=== PATIENT | female | born 1970 | race American Indian/Alaskan Native ===

== ENCOUNTER 2016-07-10 20:17 | Inpatient (IN) | payer MEDICAID ==
[2016-07-10 21:05] LABS: Basophils % (Auto) 0.9 % (0.0-1.8); Eosinophils % (Auto) 4.7 % (0.0-4.3); Hemoglobin 13.9 gm/dl (10.1-14.3); Mean Corpuscular HGB Conc 33 % (30-34); Mean Corpuscular Hemoglobin 31 pg (28-32); Mean Corpuscular Volume 93 fl (79-97); Platelet Count 198 K/mm3 (140-440); Red Blood Count 4.53 M/mm3 (3.65-5.03); Red Cell Distribution Width 13.6 % (13.2-15.2)
[2016-07-10 21:20] LABS: Anion Gap 17 mmol/L; BUN/Creatinine Ratio 13.33; Blood Urea Nitrogen 12 mg/dL (7-17); Calcium 9.3 mg/dL (8.4-10.2); Carbon Dioxide 29 mmol/L (22-30); Chloride 100.1 mmol/L (98-107); Glucose 148 mg/dL (65-100); Potassium 3.5 mmol/L (3.6-5.0); Sodium 143 mmol/L (137-145)
[2016-07-10] MEDS ORDERED: K-DUR PO ONE ×2 (22:14→23:45)
--- NOTE | 2016-07-10 22:35 | Emergency Department Report ---
ED Chest Pain HPI - General Chief Complaint: Chest Pain Stated Complaint: CHEST PAIN Time Seen by Provider: 07/10/16 21:25 Source: patient Mode of arrival: Stretcher Limitations: No Limitations - History of Present Illness Initial Comments: 46 year old female with a past medical history of morbid obesity and hypertension presents to the hospital complains of chest pain and shortness of breath 1 day. Patient states since this morning she has had a constant chest pressure fluctuates in intensity. Pain is at its worse 8/10 intensity. Symptoms worse with activity and exertion. Associated dyspnea on exertion also reported which is new. Patient states she's been compliant with her medication but presents with elevated blood pressure. Patient denies history of previous stress testing. 2 months ago it was identified that she has frequent PVCs and she has been receiving outpatient workup and evaluation. Patient recently just turned in a Holter monitor after use and is in the process of scheduling outpatient stress test. She complains of cough productive of white sputum without fever. No reports of calf tenderness, edema, weakness injury, recent travel, PE/DVT history, or control use. Card: [facility] PMD: Dorian Murphy - Related Data Home Medications Medication Instructions Recorded Confirmed Last Taken Esomeprazole Magnesium [NexIUM] 40 mg PO QDAY 02/28/15 03/07/15 1 Month Ago Hydrochlorothiazide [HCTZ] 25 mg PO QDAY 02/28/15 03/07/15 03/06/15 11:00 Iron 2 tab PO QDAY 02/28/15 03/07/15 2 Days Ago Levothyroxine [Synthroid] 250 mcg PO QAM 02/28/15 03/07/15 03/06/15 08:00 Oxycodone HCl/Acetaminophen 1 each PO Q6HR PRN 02/28/15 03/07/15 02/28/15 [Percocet 10/325 mg] PARoxetine [Paxil] 20 mg PO DAILY 02/28/15 03/07/15 1 Month Ago QUEtiapine [SEROquel] 200 mg PO DAILY 02/28/15 03/07/15 1 Month Ago amLODIPine [Norvasc] 10 mg PO DAILY 02/28/15 03/07/15 Unknown risperiDONE [RisperiDONE] 3 mg PO QDAY 02/28/15 03/07/15 1 Month Ago traZODone [Desyrel] 100 mg PO BID 02/28/15 03/07/15 2 Weeks Ago amLODIPine [Norvasc] 1 tab PO DAILY 03/07/15 03/07/15 03/06/15 11:00 Previous Rx's Medication Instructions Recorded Last Taken Type HYDROmorphone [Dilaudid] 2 mg PO Q4H PRN #40 tablet 03/10/15 Unknown Rx Ibuprofen [Motrin 800 MG tab] 800 mg PO Q8H PRN #40 tablet 03/10/15 Unknown Rx Nicotine [Habitrol] 21 mg TD QDAY #30 patch 03/10/15 Unknown Rx QUEtiapine [SEROquel] 200 mg PO QHS #30 tablet 03/10/15 Unknown Rx Ondansetron [Zofran ODT TAB] 8 mg PO Q8HR #20 tab.rapdis 11/29/15 Unknown Rx Oxycodone HCl/Acetaminophen 1 each PO Q6HR PRN #20 tablet 11/29/15 Unknown Rx [Percocet 10/325 mg] metroNIDAZOLE [Flagyl] 500 mg PO Q12HR 10 Days 11/29/15 Unknown Rx Allergies Allergy/AdvReac Type Severity Reaction Status Date / Time Sulfa (Sulfonamide Allergy tongue Verified 02/28/15 13:57 Antibiotics) swells, itching JOHN score - John Score Age > 65: (0) No Aspirin use within the Past 7 Days: (0) No 3 or more CAD Risk Factors: (0) No 2 or more Angina events in past 24 hrs: (0) No Known CAD with more than 50% Stenosis: (0) No Elevated Cardiac Markers: (0) No ST Deviation Greater than 0.5mm: (0) No JOHN Score: 0 ED Review of Systems ROS: Stated complaint: CHEST PAIN Other details as noted in HPI Comment: All other systems reviewed and negative Other: Constitutional: No fevers chills Eyes: No eye pain visual changes ENT: No ear pain or throat pain Neck: Denies pain Respiratory: as per hpi Cardiovascular: Denies palpitations, syncope GI: Denies abdominal pain, nausea, vomiting, diarrhea : Denies dysuria, urinary frequency, or urgency Musculoskeletal: Denies back pain, joint swelling Skin: Denies rash, lesions, erythema Neurologic: Denies headache, numbness, weakness Psychiatric: Denies suicidal ideation, hallucinations ED Past Medical Hx - Past Medical History Hx Hypertension: Yes (x 10-15 yrs) Hx Congestive Heart Failure: No Hx Diabetes: No Hx GERD: Yes Hx Arthritis: Yes (severe knees, hips) Hx Asthma: No Hx COPD: No - Surgical History Hx Cholecystectomy: Yes Additional Surgical History: Hysterectomy, thyroidectomy - Social History Smoking Status: Never Smoker Substance Use Type: None - Medications Home Medications: Home Medications Medication Instructions Recorded Confirmed Last Taken Type Esomeprazole Magnesium [NexIUM] 40 mg PO QDAY 02/28/15 03/07/15 1 Month Ago History Hydrochlorothiazide [HCTZ] 25 mg PO QDAY 02/28/15 03/07/15 03/06/15 11:00 History Iron 2 tab PO QDAY 02/28/15 03/07/15 2 Days Ago History Levothyroxine [Synthroid] 250 mcg PO QAM 02/28/15 03/07/15 03/06/15 08:00 History Oxycodone HCl/Acetaminophen 1 each PO Q6HR PRN 02/28/15 03/07/15 02/28/15 History [Percocet 10/325 mg] PARoxetine [Paxil] 20 mg PO DAILY 02/28/15 03/07/15 1 Month Ago History QUEtiapine [SEROquel] 200 mg PO DAILY 02/28/15 03/07/15 1 Month Ago History amLODIPine [Norvasc] 10 mg PO DAILY 02/28/15 03/07/15 Unknown History risperiDONE [RisperiDONE] 3 mg PO QDAY 02/28/15 03/07/15 1 Month Ago History traZODone [Desyrel] 100 mg PO BID 02/28/15 03/07/15 2 Weeks Ago History amLODIPine [Norvasc] 1 tab PO DAILY 03/07/15 03/07/15 03/06/15 11:00 History HYDROmorphone [Dilaudid] 2 mg PO Q4H PRN #40 tablet 03/10/15 Unknown Rx Ibuprofen [Motrin 800 MG tab] 800 mg PO Q8H PRN #40 tablet 03/10/15 Unknown Rx Nicotine [Habitrol] 21 mg TD QDAY #30 patch 03/10/15 Unknown Rx QUEtiapine [SEROquel] 200 mg PO QHS #30 tablet 03/10/15 Unknown Rx Ondansetron [Zofran ODT TAB] 8 mg PO Q8HR #20 tab.rapdis 11/29/15 Unknown Rx Oxycodone HCl/Acetaminophen 1 each PO Q6HR PRN #20 tablet 11/29/15 Unknown Rx [Percocet 10/325 mg] metroNIDAZOLE [Flagyl] 500 mg PO Q12HR 10 Days 11/29/15 Unknown Rx ED Physical Exam - General Limitations: No Limitations - Other Other exam information: General: No limitations, patient is alert in no acute distress Head exam: Atraumatic, normocephalic Eyes exam: Normal appearance, pupils equal reactive to light, extraocular movements intact ENT: Moist mucous membrane, normal oropharynx Neck exam: Normal inspection, full range of motion, no meningismus nontender Respiratory exam: Clear to auscultation bilateral, no wheezes, rales, crackles, chest wall nontender Cardiovascular: Normal rate and rhythm, normal heart sounds Abdomen: Soft, nondistended, and nontender, with normal bowel sounds, no rebound, or guarding Extremity: Full range of motion normal inspection no deformity, no calf tenderness or edema Back: Normal Inspection, full range of motion, no tenderness Neurologic: Alert, oriented x3, cranial nerves intact, no motor or sensory deficit Psychiatric: normal affect, normal mood Skin: Warm, dry, intact ED Course Vital Signs 07/10/16 20:36 Temperature 97.7 F Pulse Rate 67 Blood Pressure 174/106 O2 Sat by Pulse 100 Oximetry - Reevaluation(s) Reevaluation #1: 07/10/16 22:39 pt stable ED Medical Decision Making - Lab Data Result diagrams: 07/10/16 20:54 07/10/16 20:54 Lab Results 07/10/16 07/10/16 07/10/16 Range/Units 20:54 20:54 20:54 WBC 7.0 (4.5-11.0) K/mm3 RBC 4.53 (3.65-5.03) M/mm3 Hgb 13.9 (10.1-14.3) gm/dl Hct 42.0 (30.3-42.9) % MCV 93 (79-97) fl MCH 31 (28-32) pg MCHC 33 (30-34) % RDW 13.6 (13.2-15.2) % Plt Count 198 (140-440) K/mm3 Lymph % (Auto) 22.3 (13.4-35.0) % [place] % (Auto) 8.3 H (0.0-7.3) % Eos % (Auto) 4.7 H (0.0-4.3) % Baso % (Auto) 0.9 (0.0-1.8) % Lymph # 1.6 (1.2-5.4) K/mm3 [place] # 0.6 (0.0-0.8) K/mm3 Eos # 0.3 (0.0-0.4) K/mm3 Baso # 0.1 (0.0-0.1) K/mm3 Seg Neutrophils % 63.8 (40.0-70.0) % Seg Neutrophils # 4.5 (1.8-7.7) K/mm3 D-Dimer (0-234) ng/mlDDU Sodium 143 (137-145) mmol/L Potassium 3.5 L (3.6-5.0) mmol/L Chloride 100.1 (98-107) mmol/L Carbon Dioxide 29 (22-30) mmol/L Anion Gap 17 mmol/L BUN 12 (7-17) mg/dL Creatinine 0.9 (0.7-1.2) mg/dL Estimated GFR > 60 ml/min BUN/Creatinine Ratio 13.33 % Glucose 148 H (65-100) mg/dL Calcium 9.3 (8.4-10.2) mg/dL Magnesium 1.8 (1.7-2.3) mg/dL Troponin T < 0.010 (0.00-0.029) ng/mL 07/10/16 Range/Units 21:51 WBC (4.5-11.0) K/mm3 RBC (3.65-5.03) M/mm3 Hgb (10.1-14.3) gm/dl Hct (30.3-42.9) % MCV (79-97) fl MCH (28-32) pg MCHC (30-34) % RDW (13.2-15.2) % Plt Count (140-440) K/mm3 Lymph % (Auto) (13.4-35.0) % [place] % (Auto) (0.0-7.3) % Eos % (Auto) (0.0-4.3) % Baso % (Auto) (0.0-1.8) % Lymph # (1.2-5.4) K/mm3 [place] # (0.0-0.8) K/mm3 Eos # (0.0-0.4) K/mm3 Baso # (0.0-0.1) K/mm3 Seg Neutrophils % (40.0-70.0) % Seg Neutrophils # (1.8-7.7) K/mm3 D-Dimer < 135.00 (0-234) ng/mlDDU Sodium (137-145) mmol/L Potassium (3.6-5.0) mmol/L Chloride (98-107) mmol/L Carbon Dioxide (22-30) mmol/L Anion Gap mmol/L BUN (7-17) mg/dL Creatinine (0.7-1.2) mg/dL Estimated GFR ml/min BUN/Creatinine Ratio % Glucose (65-100) mg/dL Calcium (8.4-10.2) mg/dL Magnesium (1.7-2.3) mg/dL Troponin T (0.00-0.029) ng/mL - EKG Data -: EKG Interpreted by Me (sinus frequent PVCs rate 88) - EKG Data When compared to previous EKG there are: previous EKG unavailable - Radiology Data Radiology results: image reviewed (chest x-ray: No acute findings) - Medical Decision Making Patient will be admitted to the hospital for a cardiac evaluation given chest pressure and exertional dyspnea. D-dimer negative without any preceding PE/DVT risk factors other than obesity. No signs of acute SC in the ED. Pt received po potassium for mild hypokalemia - Differential Diagnosis SC, stable angina, PE, obesity Critical Care Time: No Critical care attestation.: If time is entered above; I have spent that time in minutes in the direct care of this critically ill patient, excluding procedure time. ED Disposition Clinical Impression: Hypokalemia Obesity Qualifiers: Obesity type: unspecified obesity type Obesity severity: morbid Qualified Code( s): E66.01 - Morbid (severe) obesity due to excess calories Chest pain Qualifiers: Chest pain type: unspecified Qualified Code(s): R07.9 - Chest pain, unspecified Dyspnea Qualifiers: Dyspnea type: unspecified Qualified Code(s): R06.00 - Dyspnea, unspecified HTN (hypertension) Qualifiers: Hypertension type: essential hypertension Qualified Code(s): I10 - Essential ( primary) hypertension Disposition: OP ADMITTED IP TO THIS HOSP Is pt being admited?: Yes Does the pt Need Aspirin: Yes Condition: Stable Time of Disposition: 22:40 (Dr Lockhart/hosp)
[2016-07-10] MEDS ORDERED: ASPIRIN PO ONE (22:41)
--- NOTE | 2016-07-10 23:53 | History and Physical Report ---
History of Present Illness Date of examination: 07/10/16 Date of admission: 07/10/16 22:42 Chief complaint: chest pain History of present illness: 46 year old female with a past medical history of morbid obesity and hypertension presents to the hospital complains of chest pain and shortness of breath 1 day. Patient states since this morning she has had a constant chest pressure fluctuates in intensity. Pain is at its worse 8/10 intensity. Symptoms worse with activity and exertion. Associated dyspnea on exertion also reported which is new. Patient states she's been compliant with her medication but presents with elevated blood pressure. Patient denies history of previous stress testing. 2 months ago it was identified that she has frequent PVCs and she has been receiving outpatient workup and evaluation. Patient recently just turned in a Holter monitor after use and is in the process of scheduling outpatient stress test. She complains of cough productive of white sputum without fever. No reports of calf tenderness, edema, weakness injury, recent travel, PE/DVT history, or control use. In the ER her troponine negative, she is getting admitted for further assessment. Past History Past Medical History: asthma, hypertension, thyroid disease, GERD, cancer (h/o thyroid cancer s/p two resections and radioactive iodine therapy in September 2014), other (Morbid Obesity, Schizophrenia ); Card: [facility] PMD: Dorian Murphy Past Surgical History: cholecystectomy, tonsillectomy, other (two thyroid surgeries (2011, 2013) ) ADMINISTRATIVE SECRETARY History: fibroids Family/Genetic History: heart disease, cancer Social history: smoking (1 pack per day) Review of System: Constitutional: no fever, no chills, no weight loss Ears, eyes, nose, mouth and throat: no nasal congestion, no nasal discharge, no sinus pressure, no vision change, no red eye. Neck: No neck pain or rigidity. Cardiovascular: + chest pain, no orthopnea, no palpitations, no leg swelling Respiratory: No shortness of breath, no cough, no congestion, no wheezing Gastrointestinal: no abdominal pain, no nausea, no vomiting Genitourinary : no dysuria, no hematuria Musculoskeletal: no joint swelling or muscle ache Integumentary: no rash, no pruritis Neurological: no parathesias, no numbness, no tingling Endocrine: no cold or heat intolerance, no polyuria or polydipsia Hematologic/Lymphatic: no easy bruising, no easy bleeding, no gland swelling Allergic/Immunologic: no urticaria, no angioedema. Medications and Allergies Allergies Allergy/AdvReac Type Severity Reaction Status Date / Time aspirin Allergy Swelling Verified 07/10/16 23:23 Sulfa (Sulfonamide Allergy tongue Verified 02/28/15 13:57 Antibiotics) swells, itching Home Medications Medication Instructions Recorded Confirmed Last Taken Type Esomeprazole Magnesium [NexIUM] 40 mg PO QDAY 02/28/15 03/07/15 1 Month Ago History Iron 2 tab PO QDAY 02/28/15 03/07/15 2 Days Ago History amLODIPine [Norvasc] 10 mg PO DAILY 02/28/15 03/07/15 Unknown History HYDROmorphone [Dilaudid] 2 mg PO Q4H PRN #40 tablet 03/10/15 Unknown Rx Ibuprofen [Motrin 800 MG tab] 800 mg PO Q8H PRN #40 tablet 03/10/15 Unknown Rx QUEtiapine [SEROquel] 200 mg PO QHS #30 tablet 03/10/15 Unknown Rx Ondansetron [Zofran ODT TAB] 8 mg PO Q8HR #20 tab.rapdis 11/29/15 Unknown Rx Oxycodone HCl/Acetaminophen 1 each PO Q6HR PRN #20 tablet 11/29/15 Unknown Rx [Percocet 10/325 mg] metroNIDAZOLE [Flagyl TAB] 500 mg PO Q12HR 10 Days 11/29/15 Unknown Rx Hydrochlorothiazide [HCTZ] 25 mg PO QDAY #30 tablet 07/11/16 Unknown Rx Levothyroxine [Synthroid] 250 mcg PO QAM #30 tablet 07/11/16 Unknown Rx Nicotine [Habitrol] 21 mg TD QDAY #30 patch 07/11/16 Unknown Rx Oxycodone HCl/Acetaminophen 1 each PO Q6HR PRN #15 tablet 07/11/16 Unknown Rx [Percocet 10/325 mg] PARoxetine [Paxil] 20 mg PO DAILY #30 tablet 07/11/16 Unknown Rx Pantoprazole [Protonix TAB] 40 mg PO DAILY #30 tablet 07/11/16 Unknown Rx QUEtiapine [SEROquel] 200 mg PO DAILY #30 tablet 07/11/16 Unknown Rx amLODIPine [Norvasc] 1 tab PO DAILY #30 tablet 07/11/16 Unknown Rx risperiDONE [RisperiDONE] 3 mg PO QDAY #30 tablet 07/11/16 Unknown Rx traZODone [Desyrel] 100 mg PO BID #30 tablet 07/11/16 Unknown Rx Active Meds: Active Medications Enoxaparin Sodium (Lovenox) 40 mg SUB-Q QDAY ED Exam - Physical Exam Narrative exam: GENERAL: This is a morbidly obese female lying on bed appeared to be in no discomfort. HEENT: Normocephalic. Atraumatic. Extraocular motions are intact. No conjunctival congestion or icterus. Patient has moist mucous membranes. External auditory canal and nares patent bilaterally. NECK: Supple. Trachea midline. No JVD, thyromagaly or lymphadenopathy. CHEST/LUNGS: Clear to auscultated bilaterally. There is no respiratory distress noted, breathing nonlabored. No wheezes crackles or rhonchi. positive for chest wall tenderness. HEART/CARDIOVASCULAR: Regular in rate and rhythm. PMI at the apex. There is no gallop rub or murmur. ABDOMEN: Abdomen is soft, nontender. Patient has normal bowel sounds. There is no abdominal distention. No organomagaly or rigidity. SKIN: There is no rash, no erythrema. There is no diaphoresis. Warm and dry. NEUROLOGY: The patient is awake, alert, and oriented. The patient is cooperative. The patient has normal speech. No focal motor deficit. MUSCULOSKELETAL: No joint effusion or tenderness. Muscle strength equal bilaterally. No muscle wasting. EXTRIMITY: No edema, cyanosis or clubbing. PSYCH: No depression or anxiety noted. Cooperative. - Constitutional Vitals: Temp Pulse Resp BP Pulse Ox 97.7 F 67 174/106 100 07/10/16 20:36 07/10/16 20:36 07/10/16 20:36 07/10/16 20:36 Results - Labs CBC & Chem 7: 07/10/16 20:54 07/11/16 01:38 Labs: Laboratory Last Values WBC 7.0 K/mm3 (4.5-11.0) 07/10/16 20:54 RBC 4.53 M/mm3 (3.65-5.03) 07/10/16 20:54 Hgb 13.9 gm/dl (10.1-14.3) 07/10/16 20:54 Hct 42.0 % (30.3-42.9) 07/10/16 20:54 MCV 93 fl (79-97) 07/10/16 20:54 MCH 31 pg (28-32) 07/10/16 20:54 MCHC 33 % (30-34) 07/10/16 20:54 RDW 13.6 % (13.2-15.2) 07/10/16 20:54 Plt Count 198 K/mm3 (140-440) 07/10/16 20:54 Lymph % (Auto) 22.3 % (13.4-35.0) 07/10/16 20:54 [place] % (Auto) 8.3 % (0.0-7.3) H 07/10/16 20:54 Eos % (Auto) 4.7 % (0.0-4.3) H 07/10/16 20:54 Baso % (Auto) 0.9 % (0.0-1.8) 07/10/16 20:54 Lymph # 1.6 K/mm3 (1.2-5.4) 07/10/16 20:54 [place] # 0.6 K/mm3 (0.0-0.8) 07/10/16 20:54 Eos # 0.3 K/mm3 (0.0-0.4) 07/10/16 20:54 Baso # 0.1 K/mm3 (0.0-0.1) 07/10/16 20:54 Seg Neutrophils % 63.8 % (40.0-70.0) 07/10/16 20:54 Seg Neutrophils # 4.5 K/mm3 (1.8-7.7) 07/10/16 20:54 D-Dimer < 135.00 ng/mlDDU (0-234) 07/10/16 21:51 Sodium 143 mmol/L (137-145) 07/10/16 20:54 Potassium 3.5 mmol/L (3.6-5.0) L 07/10/16 20:54 Chloride 100.1 mmol/L (98-107) 07/10/16 20:54 Carbon Dioxide 29 mmol/L (22-30) 07/10/16 20:54 Anion Gap 17 mmol/L 07/10/16 20:54 BUN 12 mg/dL (7-17) 07/10/16 20:54 Creatinine 0.9 mg/dL (0.7-1.2) 07/10/16 20:54 Estimated GFR > 60 ml/min 07/10/16 20:54 BUN/Creatinine Ratio 13.33 % 07/10/16 20:54 Glucose 148 mg/dL (65-100) H 07/10/16 20:54 Calcium 9.3 mg/dL (8.4-10.2) 07/10/16 20:54 Magnesium 1.8 mg/dL (1.7-2.3) 07/10/16 20:54 Troponin T < 0.010 ng/mL (0.00-0.029) 07/10/16 23:20 - Imaging and Cardiology Chest x-ray: pending Assessment and Plan Assessment and plan: Acute chest pain rule out ACS Hypokalemia, mild Hypothyroidism History of schizophrenia Hypertension, uncontrolled Morbid obesity History of asthma not in any exacerbation Plan: Admit to medicine her chest pain could be musculoskeletal but need to r/o ACS monitor serial troponine and EKG resume home meds Stress test tomorrow am resume home meds place beta radha and statin No aspirin b/o allergic history replace electrolytes GI and DVT prophylaxis Dietary recommendation when medically stable Advance Directives: Yes VTE prophylaxis?: Chemical Plan of care discussed with patient/family: Yes
[2016-07-11] MEDS ORDERED: ROXICODONE PO PRN (00:03)
[2016-07-11] MEDS ORDERED: SODIUM CHLORIDE FLUSH SYRINGE 10 ML IV PRN (00:09)
[2016-07-11] MEDS ORDERED: PERCOCET 5/325 ONE (00:32)
[2016-07-11] MEDS ORDERED: ROXICODONE ONE (00:32)
[2016-07-11] MEDS ORDERED: PERCOCET 5/325 PO PRN (00:44)
[2016-07-11 02:45] LABS: Creatine Kinase MB 2.7 ng/mL (0.0-4.0)
[2016-07-11 02:46] LABS: Anion Gap 19 mmol/L; BUN/Creatinine Ratio 21.25; Blood Urea Nitrogen 17 mg/dL (7-17); Calcium 8.9 mg/dL (8.4-10.2); Carbon Dioxide 27 mmol/L (22-30); Chloride 101.7 mmol/L (98-107); Glucose 164 mg/dL (65-100); Potassium 3.5 mmol/L (3.6-5.0); Sodium 144 mmol/L (137-145)
[2016-07-11 02:49] LABS: Creatine Kinase 217 units/L (30-135)
[2016-07-11] MEDS ORDERED: SYNTHROID PO SCH (06:00)
[2016-07-11 07:06] LABS: Creatine Kinase MB 2.8 ng/mL (0.0-4.0)
[2016-07-11 07:07] LABS: Creatine Kinase 209 units/L (30-135)
--- NOTE | 2016-07-11 08:12 | XRay Report ---
CHEST TWO VIEWS: 07/10/16 CLINICAL: Shortness of breath and chest pain. COMPARISON: 03/05/15 FINDINGS: Normal heart and pulmonary vasculature. The lungs are normally expanded and clear. The bones and soft tissues are normal. IMPRESSION: Normal contrast.
[2016-07-11] MEDS ORDERED: LEXISCAN IV ONE ×2 (08:29→08:47)
--- NOTE | 2016-07-11 09:32 | Admit Criteria Form ---
Admission Criteria Documentation: CHEST PAIN Clinical Indications for Admission to Inpatient Care (Place 'X' for any and all applicable criteria): Admission is indicated for chest pain and ANY ONE of the following(1)(2)(3)(4)(5 ): [ ]I. Angina with acute coronary syndrome (Also use Myocardial Infarction or Angina guideline) [ ]II. Hemodynamic instability []III. Angina needing acute intervention as indicated by ALL of the following( 11)(12): [ ]a) Unstable angina is present as indicated by angina that is ANY ONE of the following: [ ]i) New onset [ ]ii) Nocturnal [ ]iii) Prolonged at rest [ ]iv) Progressive [ ]b) Angina warrants acute intervention as indicated by ANY ONE of the following: [ ]i) Recurrent angina (e.g, not responding as previously to treatment) [ ]ii) Angina at rest or with low-level activities despite initial medical therapy [ ]iii) New or presumably new ST-segment depression on ECG [ ]iv) Signs or symptoms of heart failure (eg, dyspnea, pulmonary edema) [ ]v) New or worsening mitral regurgitation [ ]vi) Hemodynamic instability [ ]vii) Dangerous arrhythmia (eg, sustained ventricular tachycardia) [ ]viii) History of percutaneous coronary intervention within 6 months [ ]ix) History of coronary artery bypass graft surgery [ ]x) JOHN risk score of 2 or greater[A] [ ]xi) History of Diabetes(14) [ ]xii) High-risk cardiac ischemia findings on noninvasive testing (e.g, echocardiogram, treadmill testing, nuclear scan) [ ]xiii) Chronic renal insufficiency (ie, estimated GFR less than 60 mL/min/1.732m) [ ]xiv) Left ventricular ejection fraction less than 40% [ ]IV. Evidence of OR (eg, cardiac biomarkers positive, ST-segment elevation on ECG) also use Myocardial Infarction Criteria Form. [ ]V. Pulmonary edema [ ]. Respiratory distress [ ]VII. Chest pain indicative of serious diagnosis other than coronary artery disease (eg, aortic dissection) [X ]VIII. Contraindications and/or Inappropriate clinical situations for Observational Care in patients with Chest Pain, when ANY ONE of the following is required: [X ]a) Patient with risk factor for pulmonary embolism, acute coronary syndrome and myocardial infarction (18) [ ]b) Patient with Pulmonary embolism require an average LOS of 4.3 days, therefore emergency department observation management is inappropriate 18,23 [ ]c) Painful condition/s in the elderly, have the highest rate of recidivism after emergency department observation management (10.8%) 20,21,22 [ ]d) Elevated cardiac biomarker requires intensive and exhaustive care (19) [X ]IX. General contraindications and/or Inappropriate clinical situations for Observational Care in patients with Chest Pain, when ANY ONE of the following is required: [X ]a) Prediction of prolongation of LOS based on ANY ONE of the following may be considered as a contraindication for observational care 2, 3, 4, 5, 6, 7, 8, 9, 10, 11 [ ]i) Age > 65 yrs. [X ]ii) Patient arriving by ambulance [ ]iii) Patient with high acuity [ ]iv) Patient requiring vital sign monitoring [ ]v) Patient on IV medication [ ]b) Systolic blood pressures 180mmHg 3,12 [ ]c) Patient with altered mental status including delirium and other alteration of consciousness, (3) [ ]d) Patient whose discharge disposition will be to a assisted home or rehabilitation home should not be managed in Emergency Department Observation Unit. CMS rule requires 3 days hospital stay before such placement. 3,13 [ ]e) Patient with failure to thrive due to broad array of etiologies 3,16,17 [ ]f) Inability to ambulate 3,14 Extended stay beyond goal length of stay may be needed for (1)(28): [ ]a) Specific condition diagnosed after evaluation (eg, pulmonary embolism, aortic dissection) [ ]b) Unstable angina [ ]c) Continued suspicion of acute coronary syndrome with inability to complete needed cardiac evaluation (eg, patient clinically unable to undergo stress testing) [ ]d) Myocardial infarction (Contents from ANGINA and CHEST PAIN clinical indications for admission to inpatient care have been integrated in this form) The original [employer] content created by [employer] has been revised. The portions of the content which have been revised are identified through the use of italic text or in bold, and [facility] [employer] has neither reviewed nor approved the modified material. All other unmodified content is copyright [employer]. Please see references footnoted in the original [facility] edition 2016 Admission Criteria Met: Yes
[2016-07-11] MEDS ORDERED: RisperDAL PO SCH (10:00)
[2016-07-11] MEDS ORDERED: NORVASC PO SCH (10:00)
[2016-07-11] MEDS ORDERED: DESYREL PO SCH (10:00)
[2016-07-11] MEDS ORDERED: PROTONIX PO SCH (10:00)
[2016-07-11] MEDS ORDERED: HCTZ PO SCH (10:00)
[2016-07-11] MEDS ORDERED: COREG PO SCH (10:00)
[2016-07-11] MEDS ORDERED: HABITROL TD SCH (10:00)
[2016-07-11] MEDS ORDERED: PAXIL PO SCH (10:00)
[2016-07-11] MEDS ORDERED: LOVENOX SUB-Q SCH (10:00)
[2016-07-11] MEDS ORDERED: ECOTRIN PO SCH (10:00)
[2016-07-11 13:35] VITALS: BP 136/80
--- NOTE | 2016-07-11 13:57 | Treadmill Report ---
INDICATION: Chest pain. FINDINGS: There is no scintigraphic evidence of myocardial ischemia. The left ventricle is normal in size and systolic function. The left ventricular ejection fraction is measured at 62%. A normal wall motion with wall thickening is noted on gated imaging. CONCLUSION: Normal perfusion scan. JOB# [id number] GIANNI/HIGINIO
--- NOTE | 2016-07-11 14:41 | Progress Note ---
Assessment and Plan Assessment and plan: Acute chest pain rule out ACS. Stress thallium to rule out coronary artery disease. Hypokalemia, mild. Replete potassium. Hypothyroidism. Follow-up TSH. History of schizophrenia. Continue medications. Hypertension, uncontrolled. Continue antihypertensive medications. Morbid obesity History of asthma not in any exacerbation History Interval history: 46 year old female with a past medical history of morbid obesity and hypertension presents to the hospital complains of chest pain and shortness of breath 1 day. Patient still complains of pain currently. Patient states her shortness of breath is improved. Hospitalist Physical - Constitutional Vitals: Temp Pulse Resp BP Pulse Ox 97.9 F 76 20 136/80 99 07/11/16 11:10 07/11/16 11:10 07/11/16 11:10 07/11/16 11:10 07/11/16 11:10 General appearance: Present: no acute distress, well-nourished - EENT Eyes: Present: PERRL, EOM intact ENT: hearing intact, clear oral mucosa, dentition normal - Neck Neck: Present: supple, normal ROM - Respiratory Respiratory effort: normal Respiratory: bilateral: diminished - Cardiovascular Rhythm: regular Heart Sounds: Present: S1 & S2. Absent: gallop, rub - Extremities Extremities: no ischemia, No edema, Full ROM - Abdominal General gastrointestinal: soft, non-tender, non-distended, normal bowel sounds - Integumentary Integumentary: Present: clear, warm, dry - Neurologic Neurologic: CNII-XII intact, moves all extremities Results - Labs CBC & Chem 7: 07/10/16 20:54 07/11/16 01:38 Labs: Laboratory Last Values WBC 7.0 K/mm3 (4.5-11.0) 07/10/16 20:54 RBC 4.53 M/mm3 (3.65-5.03) 07/10/16 20:54 Hgb 13.9 gm/dl (10.1-14.3) 07/10/16 20:54 Hct 42.0 % (30.3-42.9) 07/10/16 20:54 MCV 93 fl (79-97) 07/10/16 20:54 MCH 31 pg (28-32) 07/10/16 20:54 MCHC 33 % (30-34) 07/10/16 20:54 RDW 13.6 % (13.2-15.2) 07/10/16 20:54 Plt Count 198 K/mm3 (140-440) 07/10/16 20:54 Lymph % (Auto) 22.3 % (13.4-35.0) 07/10/16 20:54 [place] % (Auto) 8.3 % (0.0-7.3) H 07/10/16 20:54 Eos % (Auto) 4.7 % (0.0-4.3) H 07/10/16 20:54 Baso % (Auto) 0.9 % (0.0-1.8) 07/10/16 20:54 Lymph # 1.6 K/mm3 (1.2-5.4) 07/10/16 20:54 [place] # 0.6 K/mm3 (0.0-0.8) 07/10/16 20:54 Eos # 0.3 K/mm3 (0.0-0.4) 07/10/16 20:54 Baso # 0.1 K/mm3 (0.0-0.1) 07/10/16 20:54 Seg Neutrophils % 63.8 % (40.0-70.0) 07/10/16 20:54 Seg Neutrophils # 4.5 K/mm3 (1.8-7.7) 07/10/16 20:54 D-Dimer < 135.00 ng/mlDDU (0-234) 07/10/16 21:51 Sodium 144 mmol/L (137-145) 07/11/16 01:38 Potassium 3.5 mmol/L (3.6-5.0) L 07/11/16 01:38 Chloride 101.7 mmol/L (98-107) 07/11/16 01:38 Carbon Dioxide 27 mmol/L (22-30) 07/11/16 01:38 Anion Gap 19 mmol/L 07/11/16 01:38 BUN 17 mg/dL (7-17) 07/11/16 01:38 Creatinine 0.8 mg/dL (0.7-1.2) 07/11/16 01:38 Estimated GFR > 60 ml/min 07/11/16 01:38 BUN/Creatinine Ratio 21.25 % 07/11/16 01:38 Glucose 164 mg/dL (65-100) H 07/11/16 01:38 Calcium 8.9 mg/dL (8.4-10.2) 07/11/16 01:38 Magnesium 1.8 mg/dL (1.7-2.3) 07/10/16 20:54 Total Creatine Kinase 209 units/L (30-135) H 07/11/16 05:39 CK-MB (CK-2) 2.8 ng/mL (0.0-4.0) 07/11/16 05:39 CK-MB (CK-2) Rel Index 1.3 (0-4) 07/11/16 05:39 Troponin T < 0.010 ng/mL (0.00-0.029) 07/11/16 05:39
--- NOTE | 2016-07-11 14:49 | Discharge Summary ---
Providers - Providers Date of Admission: 07/10/16 22:42 Date of discharge: 07/11/16 Attending physician: ABDOULAYE HERNANDEZ 07/11/16 Consult to Cardiac Rehabilitation [CONS] Routine Reason For Exam: Phase I 07/11/16 09:13 Consult to Physician [CONS] Routine Consulting Provider: LUKE MILLS Reason For Exam: cp Place consult to:: dr mills Notified:: dr mills Primary care physician: DIGITAL [employer]ENT COORDINATOR Hospitalization Reason for admission: CP Condition: Stable Hospital course: 46 year old female with a past medical history of morbid obesity and hypertension presents to the hospital complains of chest pain and shortness of breath 1 day. Patient states since the morning, prior to admission she has had a constant chest pressure fluctuates in intensity. Pain is at its worse 8/ 10 intensity. Symptoms worse with activity and exertion. Patient states she' s been compliant with her medication but presents with elevated blood pressure. Patient denies history of previous stress testing. 2 months ago it was identified that she has frequent PVCs and she has been receiving outpatient workup and evaluation. Ddimer was found to be negative. Stress thallium was also found to be negative. Upon further history pt. reports pain feel like her GERD. Dedicated discharge time 35 min. Disposition: DISCHARGED TO HOME OR SELFCARE - Discharge Diagnoses (1) GERD (gastroesophageal reflux disease) Status: Acute Qualifiers: Esophagitis presence: E (2) Chest pain Status: Acute Qualifiers: Chest pain type: unspecified Qualified Code(s): R07.9 - Chest pain, unspecified (3) HTN (hypertension) Status: Acute Qualifiers: Hypertension type: essential hypertension Qualified Code(s): I10 - Essential (primary) hypertension (4) Obesity Status: Acute Qualifiers: Obesity type: unspecified obesity type Obesity severity: morbid Qualified Code(s): E66.01 - Morbid (severe) obesity due to excess calories Core Measure Documentation - Palliative Care Palliative Care/ Comfort Measures: Not Applicable - Core Measures Any of the following diagnoses?: none Exam - Constitutional Vitals: Temp Pulse Resp BP Pulse Ox 97.9 F 76 20 136/80 99 07/11/16 11:10 07/11/16 11:10 07/11/16 11:10 07/11/16 11:10 07/11/16 11:10 General appearance: Present: no acute distress, well-nourished - EENT Eyes: Present: PERRL ENT: hearing intact, clear oral mucosa - Neck Neck: Present: supple, normal ROM - Respiratory Respiratory effort: normal Respiratory: bilateral: CTA - Cardiovascular Heart Sounds: Present: S1 & S2. Absent: rub, click - Extremities Extremities: pulses symmetrical, No edema Peripheral Pulses: within normal limits - Abdominal General gastrointestinal: Present: soft, non-tender, non-distended, normal bowel sounds Female genitourinary: Present: normal - Integumentary Integumentary: Present: clear, warm, dry - Musculoskeletal Musculoskeletal: gait normal, strength equal bilaterally - Psychiatric Psychiatric: appropriate mood/affect, intact judgment & insight - Neurologic Neurologic: CNII-XII intact, moves all extremities Plan Activity: no restrictions Weight Bearing Status: Full Weight Bearing Diet: low fat, low cholesterol, low salt Prescriptions: amLODIPine [Norvasc] 1 tab PO DAILY #30 tablet Hydrochlorothiazide [HCTZ] 25 mg PO QDAY #30 tablet Levothyroxine [Synthroid] 250 mcg PO QAM #30 tablet Nicotine [Habitrol] 21 mg TD QDAY #30 patch Oxycodone HCl/Acetaminophen [Percocet 10/325 mg] 1 each PO Q6HR PRN #15 tablet PRN Reason: Pain Pantoprazole [Protonix TAB] 40 mg PO DAILY #30 tablet PARoxetine [Paxil] 20 mg PO DAILY #30 tablet QUEtiapine [SEROquel] 200 mg PO DAILY #30 tablet risperiDONE [RisperiDONE] 3 mg PO QDAY #30 tablet traZODone [Desyrel] 100 mg PO BID #30 tablet
== END 2016-07-11 16:47 | disposition home or self-care (01) | DRG 392 ==
LOC: ED 20:17 → 4A 22:42
PROVIDERS: ADMIT Internal Medicine; ATTEND Hospitalist
DX: K21.9 Gastro-esophageal reflux disease without esophagitis (principal); Z68.43 Body mass index [BMI] 50.0-59.9, adult; R07.9 Chest pain, unspecified; I10 Essential (primary) hypertension; E87.6 Hypokalemia; E66.01 Morbid (severe) obesity due to excess calories; M17.0 Bilateral primary osteoarthritis of knee; M16.0 Bilateral primary osteoarthritis of hip; J45.909 Unspecified asthma, uncomplicated; F20.9 Schizophrenia, unspecified; Z82.49 Family history of ischemic heart disease and other diseases of the circulatory system; E03.9 Hypothyroidism, unspecified; Z88.6 Allergy status to analgesic agent; Z88.2 Allergy status to sulfonamides; Z90.49 Acquired absence of other specified parts of digestive tract; Z90.710 Acquired absence of both cervix and uterus; Z85.850 Personal history of malignant neoplasm of thyroid; Z79.899 Other long term (current) drug therapy
CPT/HCPCS: 36415; 71020; 78452; 80048; 82550; 82553; 83735; 84484; 85025; 85379; 93005; 93010; 93017; A9502; J1650; J2785

== ENCOUNTER 2018-08-20 10:02 | Outpatient (CLI) | payer MEDICAID ==
--- NOTE | 2018-08-20 13:23 | Ultrasound Report ---
ULTRASOUND ABDOMEN COMPLETE: TECHNIQUE: Transabdominal ultrasound with color Doppler interrogation. HISTORY: Liver mass, thyroid cancer. COMPARISON: CT abdomen pelvis with contrast dated 12/05/15. FINDINGS: LIVER: The liver is mildly echogenic consistent with mild diffuse fatty infiltration. No suspicious liver lesion is identified on ultrasound. If further evaluation of the liver is needed, four-phase liver CT with contrast could be obtained. BILIARY SYSTEM: Cholecystectomy. The CBD measures 7.5 mm. PANCREAS: The proximal pancreas is normal. The pancreatic tail is obscured by bowel gas. SPLEEN: Normal. 11.1 cm in length. KIDNEYS: Normal. AORTA/IVC: Normal. ASCITES: None. IMPRESSION: Mild fatty infiltration of the liver. No suspicious liver lesion is identified on ultrasound. Cholecystectomy.
== END 2018-08-20 10:03 | disposition home or self-care (01) ==
LOC: US 10:02
PROVIDERS: ATTEND Internal Medicine Hematology & Oncology
DX: K76.0 Fatty (change of) liver, not elsewhere classified (principal); E66.9 Obesity, unspecified; K21.9 Gastro-esophageal reflux disease without esophagitis; I11.0 Hypertensive heart disease with heart failure; I50.9 Heart failure, unspecified; J45.909 Unspecified asthma, uncomplicated; Z90.49 Acquired absence of other specified parts of digestive tract; Z90.89 Acquired absence of other organs; Z90.710 Acquired absence of both cervix and uterus; Z87.891 Personal history of nicotine dependence
CPT/HCPCS: 76700